=== PATIENT | female | born 1965 | race Caucasian/White ===

== ENCOUNTER 2020-09-06 | Emergency (ER) | payer OTHER, BC ==
[~2020-09-06] MED LIST: ALPRAZOLAM0.25 MG PO; AMOXICILLIN875 MG PO; ANTIVERT OR; ATENOLOL25 MG PO; AZO-TABS95 MG OR; BUTALBITAL/ACETAMIN1 PO; CELEXA20 MG PO; CELEXA40 MG OR; CIPRO500 MG OR; CIPROFLOXACN500 MG PO; CITALOPRAM40 MG PO; DICLOFENAC25 MG OR; EFFEXOR37.5 MG PO; EVOXAC30 MG OR; LEVAQUIN500 MG PO; LORTAB 5/3255 MG PO; MAG CITRATE OR; MEDDOSEPAK PO; MIRALAX3350 N1 PO; ONDANSETRON4 MG PO; PERCOCET 5/325M1 TAB PO; PILOCARPINE1 % OP; PYRIDIUM200 MG PO; XANAX0.25 MG OR; ZANTAC150 M3 OR; [UNRECOGNIZED DRUG - OTHER] OR
== END 2020-09-06 18:45 | disposition home or self-care (01) | DRG 605 ==
DX: S00.511A Abrasion of lip, initial encounter (principal); S80.212A Abrasion, left knee, initial encounter; S80.211A Abrasion, right knee, initial encounter; S80.02XA Contusion of left knee, initial encounter; S80.01XA Contusion of right knee, initial encounter; S00.531A Contusion of lip, initial encounter; W01.198A Fall on same level from slipping, tripping and stumbling with subsequent striking against other object, initial encounter; Y92.410 Unspecified street and highway as the place of occurrence of the external cause

== ENCOUNTER 2022-04-16 22:36 | Emergency (ER) | payer OTHER, BC ==
[~2022-04-16] VITALS: Ht 154.9 cm; Wt 68.9 kg
[2022-04-16 23:00] VITALS: BP 139/91
[2022-04-16 23:12] LABS: HEMATOCRIT 44.8 % (37.0-47.0); HEMOGLOBIN 14.6 g/dl (12.0-16.0); IMMATURE GRANULOCYTES 0.2 % (0.0-5.0); MEAN CELL VOLUME 94.9 fL CALC (80.0-100.0); MEAN CORPUSCULAR HGB 30.9 pG CALC (26.0-32.0); MEAN CORPUSCULAR HGB CONC 32.6 g/dL CAL (32.0-36.0); NEUT# 3.89 thou/uL (2.00-7.15); RED BLOOD COUNT 4.72 mill/uL (4.20-5.60); RED CELL DISTRI WIDTH 12.3 % (11.5-15.5)
[2022-04-16 23:14] LABS: URINE BILIRUBIN - DIPSTICK NEGATIVE (NEGATIVE); URINE BLOOD DIPSTICK NEGATIVE (NEGATIVE); URINE COLOR YELLOW; URINE GLUCOSE - DIPSTICK NEGATIVE (NEGATIVE); URINE KETONE NEGATIVE (NEGATIVE); URINE LEUK ESTERASE NEGATIVE (NEGATIVE); URINE PH 6.5 (4.5-8.0); URINE PROTEIN - DIPSTICK NEGATIVE (NEG-TRACE); URINE UROBILINOGEN - DIPSTICK 0.2 E.U./dL (0.2)
[2022-04-16 23:15] VITALS: BP 140/98
[2022-04-16 23:17] LABS: URINE NITRITE - DIPSTICK NEGATIVE (Negative)
[2022-04-16 23:20] LABS: ACT PARTIAL THROMBO TIME 27.4 SECONDS (20.0-32.5); PROTHROMBIN TIME 9.9 SECONDS (9.0-12.5)
[2022-04-16 23:24] LABS: ALBUMIN 4.3 g/dL (3.2-5.0); ALKALINE PHOSPHATASE 226 u/l (38-126); ANION GAP 13 (6-22 (CALC)); BILIRUBIN, TOTAL 0.4 mg/dL (0.0-1.4); BUN 12 mg/dL (7-17); BUN/CREATININE RATIO 24 (12-20 (CALC)); CARBON DIOXIDE 23 mmol/l (22-30); CHLORIDE 109 mmol/l (95-108); CPK 75 u/l (30-165); CREATININE 0.5 mg/dL (0.5-1.0); GFR FOR AFR.AMER. > 60 ML/MIN (>=60 (CALC)); GFR OTHER RACES > 60 ML/MIN (>=60 (CALC)); POTASSIUM 3.5 mmol/l (3.5-5.1); SGOT/AST 39 u/l (14-36); SODIUM 141 mmol/l (137-146); TOTAL PROTEIN 7.6 g/dL (6.3-8.2)
[2022-04-16 23:31] VITALS: BP 124/78
[2022-04-17 00:15] VITALS: BP 127/72
[2022-04-17 00:30] VITALS: BP 125/63
[2022-04-17 00:46] VITALS: BP 126/77
== END 2022-04-17 00:45 | disposition home or self-care (01) | DRG 605 ==
LOC: ED 22:36
PROVIDERS: Family Medicine
DX: S20.219A Contusion of unspecified front wall of thorax, initial encounter (principal); S80.02XA Contusion of left knee, initial encounter; S80.01XA Contusion of right knee, initial encounter; V43.52XA Car driver injured in collision with other type car in traffic accident, initial encounter; S16.1XXA Strain of muscle, fascia and tendon at neck level, initial encounter; D86.9 Sarcoidosis, unspecified
CPT/HCPCS: Q9967